=== PATIENT | male | born 1950 | race Caucasian/White ===

== ENCOUNTER 2016-03-27 08:39 | Day surgery (SDC) | END 2016-03-27 08:40 | disposition home or self-care (01) | CPT/HCPCS: 45380; J3010; J7120 ==

== ENCOUNTER 2018-09-28 02:45 | Outpatient (CLI) | payer MEDICARE | END 2018-09-28 02:46 | disposition critical access hospital (66) | LOC: EMS 02:45 | PROVIDERS: ATTEND Surgery | DX: R07.9 Chest pain, unspecified (principal); R61 Generalized hyperhidrosis | CPT/HCPCS: A0425; A0427 ==

== ENCOUNTER 2018-09-28 03:05 | Emergency (ER) | payer MEDICARE, OTHER ==
[2018-09-28 03:25] LABS: BASOPHILS % (AUTO) 0.8 %; EOSINOPHILS # (AUTO) 0.1 10^3/uL (0.0-0.7); EOSINOPHILS % (AUTO) 1.5 %; LYMPHOCYTES # (AUTO) 1.4 10^3/uL (1.5-3.5); LYMPHOCYTES % (AUTO) 34.4 %; MEAN CORPUSCULAR HEMOGLOBIN 34.6 pg (27.0-31.0); MEAN CORPUSCULAR HGB CONC 35.9 g/dL (32.0-36.0); MEAN CORPUSCULAR VOLUME 96.2 fL (80.0-94.0); MEAN PLATELET VOLUME 10.5 fL (7.4-11.4); MONOCYTES # (AUTO) 0.5 10^3/uL (0.0-1.0); MONOCYTES % (AUTO) 12.5 %; NEUTROPHILS # (AUTO) 1.9 10^3/uL (1.5-6.6); NEUTROPHILS % (AUTO) 48.2 %; PLT - PLATELET COUNT 177 10^3/uL (130-450); RED BLOOD COUNT 3.18 10^6/uL (4.70-6.10); RED CELL DISTRIBUTION WIDTH 15.4 % (12.0-15.0); WHITE BLOOD COUNT 3.9 x10^3/uL (4.8-10.8)
[2018-09-28] MEDS ORDERED: NITROGLYCERIN SL 0.4 MG TABLET SL STA (03:31)
[2018-09-28] MEDS ORDERED: SODIUM CHLORIDE 0.9% 1,000 ML IV ONE (03:31)
[2018-09-28] MEDS ORDERED: LORazepam 2 MG/ML VIAL IVP STA (03:31)
--- NOTE | 2018-09-28 03:34 | ED Physician Documentation ---
PD HPI CHEST PAIN - Stated complaint Stated Complaint: CHEST PAIN - Chief complaint Chief Complaint: Cardiac - History obtained from History obtained from: Patient, EMS - History of Present Illness Timing - onset: Enter time (29), Today Timing - onset during: Rest Timing - duration: Minutes Timing - details: Abrupt onset, Still present Quality: Pressure, Aching Location: Substernal Improved by: ASA Worsened by: Exertion Associated symptoms: Shortness of air, Diaphoresis Similar symptoms before: Has not had sx before Recently seen: Not recently seen - Additional information Additional information: Previously well 68-year-old male has developed chest discomfort that was relieved by reducing activity beginning 3 days ago and 2 days ago the patient had actually stopped what he was doing and sit down to have relief of his chest pressure. Tonight he was feeling well he got up to go to the bathroom he got back in bed developed some chest pressure and shortness of breath and this did not spontaneously resolve and he ended up calling 911. He did take some aspirin. When medics arrived his pain was nearly resolved. He does have some ST depression throughout the precordial leads. He states that he has been withdrawing from alcohol this past week usually drinking a pint a day and he is cut back to 3 drinks last night. Had his last drink at approximately 8 PM. He does state that he always gets white coat hypertension. Review of Systems Constitutional: reports: Sweats. denies: Fever, Chills, Myalgias, Fatigue Eyes: denies: Decreased vision Ears: denies: Ear pain Nose: denies: Rhinorrhea / runny nose, Congestion Throat: denies: Sore throat Cardiac: reports: Chest pain / pressure. denies: Palpitations, Pedal edema, Calf pain Respiratory: reports: Dyspnea. denies: Cough, Wheezing GI: denies: Abdominal Pain, Nausea, Vomiting : denies: Dysuria, Frequency PD PAST MEDICAL HISTORY - Past Medical History Cardiovascular: None Respiratory: None Endocrine/Autoimmune: None GI: None : None HEENT: None Psych: None Musculoskeletal: None Derm: None - Past Surgical History General: Appendectomy - Present Medications Home Medications: Ambulatory Orders Medication Instructions Recorded Confirmed Calcium Carbonate [Calcium] 1 tab PO DAILY 03/27/16 03/27/16 Ergocalciferol [Vitamin D2] 1 tab PO DAILY 03/27/16 03/27/16 Flaxseed Oil 1 tab PO DAILY 03/27/16 03/27/16 Glucosamine Sulfate 1 tab PO DAILY 03/27/16 03/27/16 Multivitamin [Multiple Vitamins] 1 tab PO DAILY 03/27/16 03/27/16 Niacin 1 tab PO DAILY 03/27/16 03/27/16 [place]-3 Fatty Acids [Fish Oil] 1 tab PO DAILY 03/27/16 03/27/16 Red Yeast Rice 1 tab PO DAILY 03/27/16 03/27/16 Saw Trinity 1 tab PO DAILY 03/27/16 03/27/16 Turmeric/Turmeric Root Extract 1 tab PO DAILY 03/27/16 03/27/16 [Turmeric] Ubidecarenone [Co Q-10] 1 tab PO DAILY 03/27/16 03/27/16 - Allergies Allergies/Adverse Reactions: Allergies Allergy/AdvReac Type Severity Reaction Status Date / Time No Known Drug Allergies Allergy Verified 09/28/18 03:20 PD ED PE NORMAL - Vitals Vital signs reviewed: Yes (tacahy and hypertensive ) - General General: Alert and oriented X 3, No acute distress, Well developed/nourished - HEENT HEENT: Atraumatic, PERRL, EOMI - Neck Neck: Supple, no meningeal sign, No bony TTP - Cardiac Cardiac: RRR, Other (Loud 2nd sound like the heart is working too hard. ) - Respiratory Respiratory: No respiratory distress, Clear bilaterally - Abdomen Abdomen: Soft, Non tender - Back Back: No CVA TTP, No spinal TTP - Derm Derm: Normal color, Warm and dry, No rash - Extremities Extremities: No deformity, Normal ROM s pain, No edema, No calf tenderness / cord - Neuro Neuro: Alert and oriented X 3, survey chief 2-12 intact, No motor deficit, No sensory deficit, Normal speech Eye Opening: Spontaneous Motor: Obeys Commands Verbal: Oriented GCS Score: 15 - Psych Psych: Normal mood, Normal affect Results - Vitals Vitals: Vital Signs - 24 hr 09/28/18 09/28/18 09/28/18 03:10 03:20 03:37 Temperature 36.9 C Heart Rate 103 H 101 H 94 Respiratory 19 18 20 Rate Blood Pressure 154/81 H 163/97 H 158/95 H O2 Saturation 100 100 100 09/28/18 09/28/18 09/28/18 04:10 04:55 05:42 Temperature Heart Rate 105 H 90 83 Respiratory 14 22 21 Rate Blood Pressure 148/79 H 132/65 H 107/71 O2 Saturation 100 97 97 09/28/18 06:22 Temperature Heart Rate 91 Respiratory 18 Rate Blood Pressure 122/77 O2 Saturation 99 Oxygen O2 Source Room air - EKG (time done) 0308 Rate: Rate (enter#) (101) Rhythm: Sinus tachycardia, LAE Ischemia: ST depression Other comments: Other comments (EKG concerning for global ischemia. ) Compare to prior EKG: Old EKG unavailable Computer interpretation: Agree with computer 0446 Rate: Rate (enter#) (92) Ischemia: ST depression Compare to prior EKG: Changed from prior EKG (SPT earlier today the rate has decreased and the widespread ST depression seen has improved ) Computer interpretation: Agree with computer - Labs Labs: Laboratory Tests 09/28/18 09/28/18 09/28/18 03:15 03:15 03:15 WBC 3.9 L RBC 3.18 L Hgb 11.0 L Hct 30.6 L MCV 96.2 H MCH 34.6 H MCHC 35.9 RDW 15.4 H Plt Count 177 MPV 10.5 Neut # (Auto) 1.9 Lymph # (Auto) 1.4 L Dukes # (Auto) 0.5 Eos # (Auto) 0.1 Baso # (Auto) 0.0 Absolute Nucleated RBC 0.00 Nucleated RBC % 0.0 Sodium 139 Potassium 3.4 L Chloride 105 Carbon Dioxide 21 Anion Gap 13.0 BUN 8 Creatinine 0.6 Estimated GFR (MDRD) 134 Glucose 118 H Calcium 8.3 L Total Bilirubin < 0.2 L AST 13 ALT < 10 L Alkaline Phosphatase 44 Troponin I < 0.04 Total Protein 6.7 Albumin 3.8 Globulin 2.9 Albumin/Globulin Ratio 1.3 Lipase 58 H Ethyl Alcohol 09/28/18 09/28/18 03:34 06:06 WBC RBC Hgb Hct MCV MCH MCHC RDW Plt Count MPV Neut # (Auto) Lymph # (Auto) Dukes # (Auto) Eos # (Auto) Baso # (Auto) Absolute Nucleated RBC Nucleated RBC % Sodium Potassium Chloride Carbon Dioxide Anion Gap BUN Creatinine Estimated GFR (MDRD) Glucose Calcium Total Bilirubin AST ALT Alkaline Phosphatase Troponin I 0.36 Total Protein Albumin Globulin Albumin/Globulin Ratio Lipase Ethyl Alcohol 6.9 - Rads (name of study) chest Radiology: Prelim report reviewed (Impression: Normal single view chest.), EMP read indepedently, See rad report Procedures - IVC sono (time) 0310 Bedside IVC sono: IVC measures (cm) (1.02), IVC collapsed c insp (cm) (complete), Dehydration (est 1-2 liter deficit.) PD MEDICAL DECISION MAKING - ED course Complexity details: reviewed results, re-evaluated patient, considered differential, d/w patient ED course: Previously well 68-year-old male with what sounds like unstable angina has widespread ST depression throughout his electrocardiogram and he does appear to be withdrawing from alcohol. He arrives to the emergency department hypertensive and tachycardic and he is found to be volume depleted on interrogation the inferior vena cava. He is administered nitroglycerin and saline as well as Ativan. He has resolution of his chest pain symptoms. His initial troponin is negative and a repeat EKG shows improvement in his ST segment depression. On further history from the patient he indicates that when he goes to exercise he will have some shortness of breath that will resolve as he continues to exercise and he is able to walk 3 to 5 miles. He does state that he has noticed for years that he has some issue with excessive exertion requiring rest and despite this he continues to be able to walk 3 to 5 miles. I suspect he has collaterals and I suspect that domitila's episode likely represents the work he is expecting his heart to do from the dehydration and alcohol withdrawal has outstripped his collaterals. This patient will need admission to the hospital for unstable angina. [facility]. [facility], [facility], [facility], and [facility] are full and boarding. Our friends at [facility] were kind enough to accept Mr. Angulo in transfer and Dr. Madi Tobar is accepting and requests we start him on some heparin. Departure - Departure Disposition: 02 Transfer Acute Care Hosp Clinical Impression: Unstable angina Condition: Fair
[2018-09-28 03:38] LABS: ALBUMIN 3.8 g/dL (3.2-5.5); ALBUMIN/GLOBULIN RATIO 1.3 (1.0-2.2); ALKALINE PHOSPHATASE 44 IU/L (42-121); ALT ALANINE AMINOTRANSFERASE < 10 IU/L (10-60); AST ASPARTATE AMINOTRANSFERASE 13 IU/L (10-42); BILIRUBIN,TOTAL < 0.2 mg/dL (0.2-1.0); BUN - BLOOD UREA NITROGEN 8 mg/dL (6-20); CALCIUM 8.3 mg/dL (8.5-10.3); CARBON DIOXIDE - CO2 21 mmol/L (21-32); CHLORIDE 105 mmol/L (101-111); CREATININE 0.6 mg/dL (0.6-1.2); GFR - MDRD 134 (>89); GLUCOSE 118 mg/dL (70-100); LIPASE 58 U/L (22-51); SODIUM 139 mmol/L (135-145); TOTAL PROTEIN 6.7 g/dL (6.7-8.2)
--- NOTE | 2018-09-28 03:53 | XRAY Report ---
Reason: Chest Pain Procedure Date: 09/28/2018 Accession Number: [id number] / [id number] Procedure: XR - Chest 1 View X-Ray CPT Code: 62006 FULL RESULT: EXAM: CHEST RADIOGRAPHY EXAM DATE: 09/28/2018 03:35 AM. CLINICAL HISTORY: Chest Pain. COMPARISON: None. TECHNIQUE: 1 view. FINDINGS: Lungs/Pleura: No focal opacities evident. No pleural effusion. No pneumothorax. Mediastinum: Within exam limitations, the cardiomediastinal contour is normal. Other: None. IMPRESSION: Normal single view chest. RADIA
[2018-09-28] MEDS ORDERED: HEPARIN 5,000 UNIT/ML VIAL IVP STA (05:53)
[2018-09-28] MEDS ORDERED: HEPARIN 25000UNITS/500ML (D5W) 25,000 UNIT/500 ML BAG IV STA (05:53)
[2018-09-28 06:22] VITALS: BP 122/77
== END 2018-09-28 07:12 | disposition short-term general hospital (02) ==
LOC: EDUNIT# → ED 03:05
DX: I20.0 Unstable angina (principal); I10 Essential (primary) hypertension; E86.0 Dehydration; R00.0 Tachycardia, unspecified; R94.31 Abnormal electrocardiogram [ECG] [EKG]; F10.239 Alcohol dependence with withdrawal, unspecified
CPT/HCPCS: 36415; 71045; 80053; 83690; 84484; 85025; 93005; 96361; 96374; 96375; 99284; 99285; J2060; 80320

== ENCOUNTER 2018-09-28 09:26 | Outpatient (CLI) | payer MEDICARE | END 2018-09-28 09:27 | disposition short-term general hospital (02) | LOC: EMS 09:26 | PROVIDERS: ATTEND Surgery | DX: I20.0 Unstable angina (principal) | CPT/HCPCS: A0425; A0427 ==

== ENCOUNTER 2023-09-21 18:05 | Emergency (ER) | payer MEDICARE ==
--- NOTE | 2023-09-21 18:47 | XRAY Report ---
PROCEDURE: Hand 3+V LT INDICATIONS: Trauma TECHNIQUE: 3 views of the hand(s) acquired. COMPARISON: None. FINDINGS: Bones: No fractures or dislocations. No suspicious bony lesions. Scattered degenerative changes. Soft tissues: No suspicious soft tissue calcifications or masses. No radiodense abnormality in the soft tissue in the area of indicated wound. IMPRESSION: No acute bony abnormality. No soft tissue radiodensity to suggest retained foreign body. Reviewed by: Arabella Prieto MD, PhD on 09/21/2023 6:45 PM PDT Approved by: Arabella Prieto MD, PhD on 09/21/2023 6:45 PM PDT Station ID: [id number]
--- NOTE | 2023-09-21 18:56 | ED Physician Documentation ---
PD HPI LOWER EXT INJURY - Stated complaint Stated Complaint: L HAND INJ - Chief complaint Chief Complaint: Laceration - History obtained from History obtained from: Patient - Additional information Additional information: He was mentioning his boat up today and the piece of the boat that the rope looks onto broke off and hit him on the left hand. He has a an abrasion there and some pain and no other injuries. PD PAST MEDICAL HISTORY - Past Medical History Past Medical History: Yes Cardiovascular: Hypertension, High cholesterol Respiratory: None Endocrine/Autoimmune: None GI: None : None HEENT: None Psych: None Musculoskeletal: None Derm: None - Past Surgical History Past Surgical History: Yes General: Appendectomy Derm: Skin cancer surgery - Present Medications Home Medications: Ambulatory Orders Medication Instructions Recorded Confirmed Calcium Carbonate [Calcium] 1 tab PO DAILY 03/27/16 03/27/16 Ergocalciferol [Vitamin D2] 1 tab PO DAILY 03/27/16 03/27/16 Flaxseed Oil 1 tab PO DAILY 03/27/16 03/27/16 Glucosamine Sulfate 1 tab PO DAILY 03/27/16 03/27/16 Multivitamin [Multiple Vitamins] 1 tab PO DAILY 03/27/16 03/27/16 Niacin 1 tab PO DAILY 03/27/16 03/27/16 Duck-3 Fatty Acids [Fish Oil] 1 tab PO DAILY 03/27/16 03/27/16 Red Yeast Rice 1 tab PO DAILY 03/27/16 03/27/16 Saw Dinosaur 1 tab PO DAILY 03/27/16 03/27/16 Turmeric/Turmeric Root Extract 1 tab PO DAILY 03/27/16 03/27/16 [Turmeric] Ubidecarenone [Co Q-10] 1 tab PO DAILY 03/27/16 03/27/16 chlordiazePOXIDE [Librium] 25 mg PO Q6H PRN #15 cap 10/23/21 - Allergies Allergies/Adverse Reactions: Allergies Allergy/AdvReac Type Severity Reaction Status Date / Time No Known Drug Allergies Allergy Verified 09/21/23 18:12 - Social History Does the pt smoke?: No Smoking Status: Never smoker Does the pt drink ETOH?: Yes Does the pt have substance abuse?: No - Immunizations Immunizations are current?: Yes - POLST Patient has POLST: No PD ED PE NORMAL - Vitals Vital signs reviewed: Yes - General General: Alert and oriented X 3, No acute distress - Extremities Extremities: Other (Linear shallow abrasion over the first metacarpal, no bony tenderness of the left hand but there is some swelling. Full range of motion and no distal neurovascular compromise.) - Neuro Neuro: Alert and oriented X 3, Normal speech Results - Vitals Vitals: Vital Signs - 24 hr 09/21/23 18:12 Temperature 36.5 C Heart Rate 65 Respiratory 16 Rate Blood Pressure 154/79 H O2 Saturation 100 Oxygen O2 Source Room air - Rads (name of study) Three-view x-ray left hand negative Relevant Findings:: Final report received, EMP independent interpretation of test PD Medical Decision Making - ED course ED course: Wound was irrigated and dressed. It is not deep enough to merit suturing. Counseled on wound care. Departure - Departure Disposition: 01 Home, Self Care Clinical Impression: Abrasion of left hand, Contusion of hand, left Condition: Good Record reviewed to determine appropriate education?: Yes Instructions: ED Abrasion Comments: Note for your records that your last tetanus shot was October 22, 2021. The x-ray of your hand looks fine, no injury to the bone there. For wound care, you can wash it with soap and water and apply bacitracin ointment and a Band- Aid. Bacitracin is available [id number]. Return for any signs of infection including redness, swelling, drainage, fevers, or increased pain Forms: PCP List
[2023-09-21] MEDS: BACITRACIN ZINC OINT 1 PACKET TOP STA (19:07)
[2023-09-21 19:24] VITALS: BP 148/74; O2SAT 99
== END 2023-09-21 19:16 | disposition home or self-care (01) ==
LOC: ED 18:05
DX: S60.512A Abrasion of left hand, initial encounter (principal); S60.222A Contusion of left hand, initial encounter; W20.8XXA Other cause of strike by thrown, projected or falling object, initial encounter; Y93.89 Activity, other specified; Y92.89 Other specified places as the place of occurrence of the external cause
CPT/HCPCS: 73130; 99283; A9270